=== PATIENT | male | born 1960 | race Hispanic/Latino ===

== ENCOUNTER 2023-03-09 12:53 | Inpatient (IN) | payer OTHER ==
[~2023-03-09] VITALS: Ht 149.9 cm; Wt 76.0 kg
[2023-03-09 13:59] LABS: BASO % 0.2 % (0.0-1.0); EOS % 0.3 % (0.0-3.0); HEMATOCRIT 37.2 % (42.0-52.0); HEMOGLOBIN 11.6 g/dl (13.5-17.5); LYMPH % 11.8 % (24.0-44.0); MEAN CORPUSCULAR HEMOGLOBIN 27.5 pg (27.0-33.0); MEAN CORPUSCULAR HGB CONC 31.2 g/dl (32.0-36.5); MEAN CORPUSCULAR VOLUME 88.2 fl (80.0-96.0); MONO # 0.5 10^3/uL (0.0-0.8); MONO % 5.9 % (2.0-8.0); NEUTROPHILS # 7.2 10^3/uL (1.5-8.5); NEUTROPHILS % 81.2 % (36.0-66.0); PLATELET COUNT, AUTOMATED 252 10^3/uL (150-450); RED BLOOD COUNT 4.22 10^6/uL (4.30-6.10); WHITE BLOOD COUNT 8.8 10^3/uL (4.0-10.0)
[2023-03-09 14:12] LABS: INR 0.91; PROTHROMBIN TIME 12.5 SECONDS (12.5-14.5)
[2023-03-09 14:13] LABS: PARTIAL THROMBOPLASTIN TIME 29.5 SECONDS (24.8-34.2)
[2023-03-09 14:22] LABS: CK-MB VALUE MASS < 1.0 NG/ML (<3.6); LIPASE 41 U/L (12-53)
[2023-03-09 14:25] LABS: CPK CREATINE PHOSPHOKINASE 65 U/L (46-171); MB/CK RELATIVE INDEX 1.53 (< OR =4)
[2023-03-09 14:45] LABS: ALKALINE PHOSPHATASE 155 U/L (46-116); ALT/SGPT 16 U/L (7.0-40); AST/SGOT < 8 U/L (<34); BILIRUBIN,DIRECT 0.1 MG/DL (<0.4); BILIRUBIN,TOTAL 0.3 MG/DL (0.3-1.2); BLOOD UREA NITROGEN 25 MG/DL (9-23); CALCIUM LEVEL 8.9 MG/DL (8.3-10.6); CARBON DIOXIDE LEVEL 21 MMOL/L (20-31); CHLORIDE LEVEL 89 MMOL/L (98-107); GLOMERULAR FILTRATION RATE 46.7 (>49); GLUCOSE, FASTING 874 MG/DL (74-106); POTASSIUM SERUM 5.2 MMOL/L (3.5-5.1); SODIUM LEVEL 123 MMOL/L (136-145); TOTAL PROTEIN 7.1 G/DL (5.7-8.2)
[2023-03-09] MEDS ORDERED: NS 1,000 ML IV ONE (15:25)
[2023-03-09] MEDS ORDERED: HumuLIN R (REGULAR) INSULIN (NovoLIN R) **100U/ML** PER UNIT IV ONE (15:30)
[2023-03-09] MEDS ORDERED: INSULIN REGULAR IN 0.9 % NACL 100 UNIT in IV 1 EA IV SCH ×2 (15:30)
[2023-03-09] MEDS ORDERED: INSULIN IV RATE CHANGE DOCUMENTATION ML/HR XX SCH (15:30)
[2023-03-09 15:32] LABS: CK-MB VALUE MASS < 1.0 NG/ML (<3.6)
[2023-03-09 15:35] LABS: CPK CREATINE PHOSPHOKINASE 75 U/L (46-171); MB/CK RELATIVE INDEX 1.33 (< OR =4)
[2023-03-09] MEDS ORDERED: ISOVUE-370 76% 100ML VIAL As Ordered ONE (15:36)
[2023-03-09 16:00] LABS: HEMOGLOBIN A1c > 14.0 % (4.0-6.0)
[2023-03-09] MEDS ORDERED: MED REC IN PROGRESS XX SCH (16:00)
[2023-03-09] MEDS ORDERED: LABETALOL 100MG/20ML VIAL IV STA (16:14)
[2023-03-09] MEDS ORDERED: HOME MED LIST COMPLETE! XX SCH (16:30)
[2023-03-09 16:42] LABS: LIPASE 37 U/L (12-53)
[2023-03-09 16:45] LABS: ALBUMIN 2.8 G/DL (3.2-5.2); ALKALINE PHOSPHATASE 149 U/L (46-116); ALT/SGPT 17 U/L (7.0-40); AST/SGOT 24 U/L (<34); BILIRUBIN,DIRECT < 0.1 MG/DL (<0.4); BILIRUBIN,TOTAL 0.3 MG/DL (0.3-1.2); TOTAL PROTEIN 6.8 G/DL (5.7-8.2)
[2023-03-09 17:26] LABS: RSV AMPLIFICATION NEGATIVE (NEGATIVE)
[2023-03-09] MEDS ORDERED: ACETAMINOPHEN TAB 650MG DOSE (2X325MG) PO ONE (18:35)
[2023-03-09 19:19] LABS: ACETONE/KETONE 1.51 MMOL/L (0.02-0.27)
[2023-03-09 19:21] LABS: OSMOLALITY SERUM 314 MOSM/KG (280-301)
[2023-03-09] MEDS ORDERED: HumuLIN R (REGULAR) INSULIN (NovoLIN R) **100U/ML** PER UNIT IV STA (19:42)
[2023-03-09 19:57] LABS: CALCIUM LEVEL 8.5 MG/DL (8.3-10.6); CREATININE FOR GFR 1.41 MG/DL (0.70-1.30); POTASSIUM SERUM 5.5 MMOL/L (3.5-5.1)
[2023-03-09] MEDS ORDERED: GLUCOSE 4GM CHEW TABLET PO PRN (21:10)
[2023-03-09] MEDS ORDERED: DEXTROSE 50% 50ML SYRINGE IV PRN (21:10)
[2023-03-09] MEDS ORDERED: GLUCAGON INJ 1MG VIAL SC PRN (21:10)
[2023-03-09] MEDS ORDERED: amLODIPine 5 MG TAB PO ONE (21:10)
[2023-03-09] MEDS ORDERED: LEVEMIR (INSULIN DETEMIR) 1 UNITS/0.01ML SC SCH (21:10)
[2023-03-09] MEDS ORDERED: NS 500 ML IV ONE (21:10)
[2023-03-09 22:30] VITALS: BP 169/75; TEMP 97.8; O2SAT 93
[2023-03-09] MEDS: LIDOCAINE 5% (LIDODERM) PATCH TD SCH (23:00)
[2023-03-09] MEDS: DOXYCYCLINE HYCLATE 100MG TABLET PO SCH (23:00)
[2023-03-09] MEDS: cefTRIAXone SOD 1 GM in D5W MINI-BAG PLUS 50 ML IV SCH (23:01)
[2023-03-09] MEDS: NS 1,000 ML IV SCH (23:02)
[2023-03-10] VITALS (15 sets, daily range): BP systolic 140–165; BP diastolic 71–78; TEMP 98.3–99.2; O2SAT 90–99
[2023-03-10] MEDS ORDERED: amLODIPine 5 MG TAB PO ONE (01:50)
[2023-03-10] MEDS ORDERED: HEPARIN SOD (PORCINE) 5000UNITS/ML 1ML VIAL/SYRINGE SC SCH (06:00)
[2023-03-10 06:07] LABS: LDH LACTATE DEHYDROGENASE 154 U/L (120-246)
[2023-03-10 06:11] LABS: BLOOD UREA NITROGEN 16 MG/DL (9-23); CALCIUM LEVEL 8.4 MG/DL (8.3-10.6); CARBON DIOXIDE LEVEL 21 MMOL/L (20-31); CHLORIDE LEVEL 102 MMOL/L (98-107); CREATININE FOR GFR 1.26 MG/DL (0.70-1.30); GLOMERULAR FILTRATION RATE > 60.0 (>49); GLUCOSE, FASTING 284 MG/DL (74-106); SODIUM LEVEL 135 MMOL/L (136-145)
[2023-03-10] MEDS ORDERED: amLODIPine 5 MG TAB PO SCH (09:00)
[2023-03-10] MEDS: INSULIN LISPRO (NovoLOG) PER UNIT SC SCH ×3 (10:04→17:30)
[2023-03-10] MEDS: DOXYCYCLINE HYCLATE 100MG TABLET PO SCH ×2 (10:04→22:29)
[2023-03-10] MEDS: NS 1,000 ML IV SCH (10:05)
[2023-03-10] MEDS ORDERED: LEVEMIR (INSULIN DETEMIR) 1 UNITS/0.01ML SC ONE (16:30)
[2023-03-10] MEDS ORDERED: INSULIN LISPRO (NovoLOG) PER UNIT SC SCH ×4 (17:30→21:00)
[2023-03-10] MEDS ORDERED: LEVEMIR (INSULIN DETEMIR) 1 UNITS/0.01ML SC SCH (21:00)
[2023-03-10] MEDS: cefTRIAXone SOD 1 GM in D5W MINI-BAG PLUS 50 ML IV SCH (22:27)
[2023-03-10] MEDS: LIDOCAINE 5% (LIDODERM) PATCH TD SCH (22:28)
[2023-03-11] VITALS (23 sets, daily range): BP systolic 125–186; BP diastolic 50–79; TEMP 98.1–101.3; O2SAT 90–97
[2023-03-11] MEDS: DOXYCYCLINE HYCLATE 100MG TABLET PO SCH ×2 (08:29→20:23)
[2023-03-11] MEDS: ENOXAPARIN 40MG/0.4ML SYRINGE (J1650 PER 10MG) SC SCH (08:29)
[2023-03-11] MEDS: INSULIN LISPRO (NovoLOG) PER UNIT SC SCH ×7 (08:32→20:02)
[2023-03-11] MEDS: LEVEMIR (INSULIN DETEMIR) 1 UNITS/0.01ML SC SCH ×2 (08:33→20:24)
[2023-03-11] MEDS ORDERED: LOSARTAN 25 MG TAB PO SCH (09:00)
[2023-03-11 12:41] LABS: BASO % 0.2 % (0.0-1.0); EOS % 0.3 % (0.0-3.0); HEMATOCRIT 37.6 % (42.0-52.0); HEMOGLOBIN 11.9 g/dl (13.5-17.5); LYMPH # 1.9 10^3/uL (1.5-5.0); LYMPH % 15.9 % (24.0-44.0); MEAN CORPUSCULAR HEMOGLOBIN 27.4 pg (27.0-33.0); MEAN CORPUSCULAR HGB CONC 31.6 g/dl (32.0-36.5); MEAN CORPUSCULAR VOLUME 86.6 fl (80.0-96.0); MONO # 0.7 10^3/uL (0.0-0.8); MONO % 5.8 % (2.0-8.0); NEUTROPHILS % 77.3 % (36.0-66.0); PLATELET COUNT, AUTOMATED 268 10^3/uL (150-450); RED BLOOD COUNT 4.34 10^6/uL (4.30-6.10); WHITE BLOOD COUNT 11.7 10^3/uL (4.0-10.0)
[2023-03-11] MEDS: METOPROLOL TART 12.5 MG PER 1/2 TAB PO SCH ×2 (13:20→20:23)
[2023-03-11] MEDS: ACETAMINOPHEN TAB 650MG DOSE (2X325MG) PO PRN (20:23)
[2023-03-11] MEDS: LIDOCAINE 5% (LIDODERM) PATCH TD SCH (20:24)
[2023-03-11] MEDS: cefTRIAXone SOD 1 GM in D5W MINI-BAG PLUS 50 ML IV SCH (21:32)
[2023-03-12] VITALS (15 sets, daily range): BP systolic 126–148; BP diastolic 58–71; TEMP 99.3–101; O2SAT 90–96
[2023-03-12 05:17] LABS: BASO % 0.3 % (0.0-1.0); EOS # 0.2 10^3/uL (0.0-0.5); EOS % 1.3 % (0.0-3.0); HEMATOCRIT 36.7 % (42.0-52.0); HEMOGLOBIN 11.5 g/dl (13.5-17.5); LYMPH % 17.6 % (24.0-44.0); MEAN CORPUSCULAR HEMOGLOBIN 27.3 pg (27.0-33.0); MEAN CORPUSCULAR HGB CONC 31.3 g/dl (32.0-36.5); MEAN CORPUSCULAR VOLUME 87.2 fl (80.0-96.0); MONO # 0.7 10^3/uL (0.0-0.8); MONO % 5.9 % (2.0-8.0); NEUTROPHILS # 8.5 10^3/uL (1.5-8.5); NEUTROPHILS % 74.1 % (36.0-66.0); PLATELET COUNT, AUTOMATED 282 10^3/uL (150-450); RED BLOOD COUNT 4.21 10^6/uL (4.30-6.10); WHITE BLOOD COUNT 11.5 10^3/uL (4.0-10.0)
[2023-03-12 05:33] LABS: CALCIUM LEVEL 8.8 MG/DL (8.3-10.6); CREATININE FOR GFR 1.55 MG/DL (0.70-1.30); GLOMERULAR FILTRATION RATE 48.5 (>49); POTASSIUM SERUM 4.4 MMOL/L (3.5-5.1)
[2023-03-12 05:42] LABS: C REACTIVE PROTEIN QUANTITATIV 31.1 MG/DL (<1.0)
[2023-03-12] MEDS: INSULIN LISPRO (NovoLOG) PER UNIT SC SCH ×5 (08:19→20:09)
[2023-03-12] MEDS: LEVEMIR (INSULIN DETEMIR) 1 UNITS/0.01ML SC SCH ×2 (08:19→20:24)
[2023-03-12] MEDS: METOPROLOL TART 12.5 MG PER 1/2 TAB PO SCH ×2 (08:20→20:25)
[2023-03-12] MEDS: ENOXAPARIN 40MG/0.4ML SYRINGE (J1650 PER 10MG) SC SCH (08:20)
[2023-03-12] MEDS: DOXYCYCLINE HYCLATE 100MG TABLET PO SCH (08:20)
[2023-03-12] MEDS ORDERED: LEVEMIR (INSULIN DETEMIR) 1 UNITS/0.01ML SC ONE (09:45)
[2023-03-12] MEDS ORDERED: INSULIN LISPRO (NovoLOG) PER UNIT SC SCH (12:00)
[2023-03-12] MEDS ORDERED: ACETAMINOPHEN 325 MG TAB As Ordered ONE (15:50)
[2023-03-12] MEDS ORDERED: LIDOCAINE 1% MDV 20ML VIAL As Ordered ONE (15:53)
[2023-03-12] MEDS: ACETAMINOPHEN TAB 650MG DOSE (2X325MG) PO PRN ×2 (15:55→23:32)
[2023-03-12] MEDS: HYDROmorphone 2 MG TAB PO PRN ×2 (17:15→23:35)
[2023-03-12] MEDS: metroNIDAZOLE 500 MG in IV 1 EA IV SCH (17:33)
[2023-03-12] MEDS: LIDOCAINE 5% (LIDODERM) PATCH TD SCH (20:32)
[2023-03-12] MEDS: cefTRIAXone SOD 1 GM in D5W MINI-BAG PLUS 50 ML IV SCH (21:12)
[2023-03-13] VITALS (24 sets, daily range): BP systolic 125–142; BP diastolic 58–76; TEMP 98.3–100.2; O2SAT 87–98
[2023-03-13] MEDS: metroNIDAZOLE 500 MG in IV 1 EA IV SCH ×3 (02:40→17:50)
[2023-03-13 05:34] LABS: BASO % 0.3 % (0.0-1.0); EOS # 0.2 10^3/uL (0.0-0.5); EOS % 2.4 % (0.0-3.0); HEMOGLOBIN 10.4 g/dl (13.5-17.5); LYMPH # 1.9 10^3/uL (1.5-5.0); LYMPH % 18.8 % (24.0-44.0); MEAN CORPUSCULAR HGB CONC 30.6 g/dl (32.0-36.5); MEAN CORPUSCULAR VOLUME 88.3 fl (80.0-96.0); MONO # 0.8 10^3/uL (0.0-0.8); MONO % 7.8 % (2.0-8.0); NEUTROPHILS # 6.9 10^3/uL (1.5-8.5); NEUTROPHILS % 69.8 % (36.0-66.0); PLATELET COUNT, AUTOMATED 270 10^3/uL (150-450); RED BLOOD COUNT 3.85 10^6/uL (4.30-6.10); WHITE BLOOD COUNT 9.9 10^3/uL (4.0-10.0)
[2023-03-13 05:42] LABS: CALCIUM LEVEL 8.4 MG/DL (8.3-10.6); CREATININE FOR GFR 1.43 MG/DL (0.70-1.30); GLOMERULAR FILTRATION RATE 53.2 (>49); POTASSIUM SERUM 4.1 MMOL/L (3.5-5.1)
[2023-03-13] MEDS: LEVEMIR (INSULIN DETEMIR) 1 UNITS/0.01ML SC SCH ×2 (08:58→21:10)
[2023-03-13] MEDS: INSULIN LISPRO (NovoLOG) PER UNIT SC SCH ×7 (08:59→21:00)
[2023-03-13] MEDS: METOPROLOL TART 12.5 MG PER 1/2 TAB PO SCH ×2 (09:01→21:11)
[2023-03-13] MEDS: ENOXAPARIN 40MG/0.4ML SYRINGE (J1650 PER 10MG) SC SCH (09:02)
[2023-03-13] MEDS ORDERED: ALTEPLASE 2MG/2ML VIAL XX ONE (11:00)
[2023-03-13] MEDS: HYDROmorphone 2 MG TAB PO PRN (12:30)
[2023-03-13] MEDS ORDERED: HYDROMORPHONE HCL 0.5 MG/ 0.5 ML SYRINGE IV ONE (13:05)
[2023-03-13] MEDS: ACETAMINOPHEN TAB 650MG DOSE (2X325MG) PO PRN (15:50)
[2023-03-13] MEDS: LIDOCAINE 5% (LIDODERM) PATCH TD SCH (21:10)
[2023-03-13] MEDS: cefTRIAXone SOD 1 GM in D5W MINI-BAG PLUS 50 ML IV SCH (21:10)
[2023-03-13] MEDS ORDERED: CALCIUM CARBONATE 500 MG CHEW U/D PO ONE (22:05)
[2023-03-14] VITALS (23 sets, daily range): BP systolic 118–149; BP diastolic 56–67; TEMP 98.1–98.6; O2SAT 90–96
[2023-03-14] MEDS: metroNIDAZOLE 500 MG in IV 1 EA IV SCH ×3 (03:20→17:47)
[2023-03-14 04:50] LABS: BASO % 0.2 % (0.0-1.0); EOS # 0.1 10^3/uL (0.0-0.5); EOS % 0.9 % (0.0-3.0); HEMATOCRIT 32.4 % (42.0-52.0); HEMOGLOBIN 10.3 g/dl (13.5-17.5); LYMPH # 1.3 10^3/uL (1.5-5.0); LYMPH % 15.2 % (24.0-44.0); MEAN CORPUSCULAR HEMOGLOBIN 27.3 pg (27.0-33.0); MEAN CORPUSCULAR HGB CONC 31.8 g/dl (32.0-36.5); MEAN CORPUSCULAR VOLUME 85.9 fl (80.0-96.0); MONO # 0.6 10^3/uL (0.0-0.8); MONO % 6.8 % (2.0-8.0); NEUTROPHILS # 6.7 10^3/uL (1.5-8.5); NEUTROPHILS % 76.2 % (36.0-66.0); PLATELET COUNT, AUTOMATED 272 10^3/uL (150-450); RED BLOOD COUNT 3.77 10^6/uL (4.30-6.10); WHITE BLOOD COUNT 8.8 10^3/uL (4.0-10.0)
[2023-03-14 05:04] LABS: CALCIUM LEVEL 8.5 MG/DL (8.3-10.6); CREATININE FOR GFR 1.5 MG/DL (0.70-1.30); GLOMERULAR FILTRATION RATE 50.3 (>49); POTASSIUM SERUM 4.4 MMOL/L (3.5-5.1)
[2023-03-14 05:12] LABS: C REACTIVE PROTEIN QUANTITATIV 23.6 MG/DL (<1.0)
[2023-03-14] MEDS: METOPROLOL TART 12.5 MG PER 1/2 TAB PO SCH ×2 (08:49→21:35)
[2023-03-14] MEDS: INSULIN LISPRO (NovoLOG) PER UNIT SC SCH ×7 (08:49→21:00)
[2023-03-14] MEDS: ENOXAPARIN 40MG/0.4ML SYRINGE (J1650 PER 10MG) SC SCH (08:50)
[2023-03-14] MEDS: LEVEMIR (INSULIN DETEMIR) 1 UNITS/0.01ML SC SCH ×2 (08:50→21:36)
[2023-03-14] MEDS: FUROSEMIDE 40MG/4ML VIAL IV SCH (11:46)
[2023-03-14 12:10] LABS: ANTI DS-DNA AB Negative (Negative); CYCLIC CITRULLINATED PEPTIDE 4 units (0-19)
[2023-03-14 17:07] LABS: C-PEPTIDE 1.2 ng/mL (1.1-4.4); INSULIN LEVEL 2.2 uIU/mL (2.6-24.9)
[2023-03-14] MEDS: cefTRIAXone SOD 1 GM in D5W MINI-BAG PLUS 50 ML IV SCH (21:36)
[2023-03-14] MEDS: LIDOCAINE 5% (LIDODERM) PATCH TD SCH (21:36)
[2023-03-15] VITALS (18 sets, daily range): BP systolic 114–152; BP diastolic 55–87; TEMP 98–98.6; O2SAT 90–95
[2023-03-15] MEDS: metroNIDAZOLE 500 MG in IV 1 EA IV SCH ×3 (02:00→18:05)
[2023-03-15 05:24] LABS: BASO % 0.3 % (0.0-1.0); EOS # 0.1 10^3/uL (0.0-0.5); EOS % 1.1 % (0.0-3.0); HEMATOCRIT 33.6 % (42.0-52.0); HEMOGLOBIN 10.6 g/dl (13.5-17.5); LYMPH # 2.9 10^3/uL (1.5-5.0); LYMPH % 27.1 % (24.0-44.0); MEAN CORPUSCULAR HEMOGLOBIN 27.3 pg (27.0-33.0); MEAN CORPUSCULAR HGB CONC 31.5 g/dl (32.0-36.5); MEAN CORPUSCULAR VOLUME 86.6 fl (80.0-96.0); MONO # 0.7 10^3/uL (0.0-0.8); MONO % 6.8 % (2.0-8.0); NEUTROPHILS # 6.9 10^3/uL (1.5-8.5); NEUTROPHILS % 64.1 % (36.0-66.0); PLATELET COUNT, AUTOMATED 367 10^3/uL (150-450); RED BLOOD COUNT 3.88 10^6/uL (4.30-6.10); WHITE BLOOD COUNT 10.8 10^3/uL (4.0-10.0)
[2023-03-15 05:46] LABS: C REACTIVE PROTEIN QUANTITATIV 22.9 MG/DL (<1.0); CALCIUM LEVEL 8.3 MG/DL (8.3-10.6); CREATININE FOR GFR 1.55 MG/DL (0.70-1.30); GLOMERULAR FILTRATION RATE 48.5 (>49)
[2023-03-15] MEDS: INSULIN LISPRO (NovoLOG) PER UNIT SC SCH ×7 (07:30→20:00)
[2023-03-15] MEDS: FUROSEMIDE 40MG/4ML VIAL IV SCH (08:26)
[2023-03-15] MEDS: ENOXAPARIN 40MG/0.4ML SYRINGE (J1650 PER 10MG) SC SCH (08:26)
[2023-03-15] MEDS: LEVEMIR (INSULIN DETEMIR) 1 UNITS/0.01ML SC SCH ×2 (08:26→20:06)
[2023-03-15] MEDS: METOPROLOL TART 12.5 MG PER 1/2 TAB PO SCH ×2 (08:27→20:07)
[2023-03-15] MEDS: LIDOCAINE 5% (LIDODERM) PATCH TD SCH (20:06)
[2023-03-15] MEDS: cefTRIAXone SOD 1 GM in D5W MINI-BAG PLUS 50 ML IV SCH (21:34)
[2023-03-16] VITALS (26 sets, daily range): BP systolic 129–156; BP diastolic 63–106; TEMP 98–99.1; O2SAT 91–96
[2023-03-16] MEDS: metroNIDAZOLE 500 MG in IV 1 EA IV SCH ×2 (02:05→08:39)
[2023-03-16 05:20] LABS: HEMATOCRIT 37.3 % (42.0-52.0); HEMOGLOBIN 11.5 g/dl (13.5-17.5); MEAN CORPUSCULAR HEMOGLOBIN 26.6 pg (27.0-33.0); MEAN CORPUSCULAR HGB CONC 30.8 g/dl (32.0-36.5); MEAN CORPUSCULAR VOLUME 86.3 fl (80.0-96.0); PLATELET COUNT, AUTOMATED 401 10^3/uL (150-450); RED BLOOD COUNT 4.32 10^6/uL (4.30-6.10); WHITE BLOOD COUNT 10.2 10^3/uL (4.0-10.0)
[2023-03-16 05:44] LABS: CALCIUM LEVEL 8.4 MG/DL (8.3-10.6); CREATININE FOR GFR 1.43 MG/DL (0.70-1.30); GLOMERULAR FILTRATION RATE 53.2 (>49); POTASSIUM SERUM 4.1 MMOL/L (3.5-5.1)
[2023-03-16 07:11] LABS: C REACTIVE PROTEIN QUANTITATIV 14.9 MG/DL (<1.0)
[2023-03-16] MEDS: FUROSEMIDE 40MG/4ML VIAL IV SCH (08:39)
[2023-03-16] MEDS: ENOXAPARIN 40MG/0.4ML SYRINGE (J1650 PER 10MG) SC SCH (08:39)
[2023-03-16] MEDS: LEVEMIR (INSULIN DETEMIR) 1 UNITS/0.01ML SC SCH ×2 (08:39→21:41)
[2023-03-16] MEDS ORDERED: ALTEPLASE 2MG/2ML VIAL XX ONE (08:40)
[2023-03-16] MEDS: INSULIN LISPRO (NovoLOG) PER UNIT SC SCH ×7 (08:40→21:00)
[2023-03-16] MEDS: METOPROLOL TART 12.5 MG PER 1/2 TAB PO SCH ×2 (08:41→21:15)
[2023-03-16] MEDS: metroNIDAZOLE (FLAGYL) 500MG TABLET PO SCH ×2 (15:58→21:15)
[2023-03-16] MEDS: cefTRIAXone SOD 1 GM in D5W MINI-BAG PLUS 50 ML IV SCH (21:14)
[2023-03-16] MEDS: LIDOCAINE 5% (LIDODERM) PATCH TD SCH (21:23)
[2023-03-17] VITALS (8 sets, daily range): BP systolic 157; BP diastolic 69; TEMP 98.1; O2SAT 92–95
[2023-03-17 05:15] LABS: BASO # 0.1 10^3/uL (0.0-0.2); BASO % 0.5 % (0.0-1.0); EOS # 0.1 10^3/uL (0.0-0.5); EOS % 0.5 % (0.0-3.0); HEMATOCRIT 37.2 % (42.0-52.0); HEMOGLOBIN 11.5 g/dl (13.5-17.5); LYMPH # 2.9 10^3/uL (1.5-5.0); LYMPH % 27.1 % (24.0-44.0); MEAN CORPUSCULAR HEMOGLOBIN 26.9 pg (27.0-33.0); MEAN CORPUSCULAR HGB CONC 30.9 g/dl (32.0-36.5); MEAN CORPUSCULAR VOLUME 86.9 fl (80.0-96.0); MONO # 0.7 10^3/uL (0.0-0.8); MONO % 6.7 % (2.0-8.0); NEUTROPHILS # 6.9 10^3/uL (1.5-8.5); NEUTROPHILS % 64.1 % (36.0-66.0); PLATELET COUNT, AUTOMATED 460 10^3/uL (150-450); RED BLOOD COUNT 4.28 10^6/uL (4.30-6.10); WHITE BLOOD COUNT 10.7 10^3/uL (4.0-10.0)
[2023-03-17] MEDS: metroNIDAZOLE (FLAGYL) 500MG TABLET PO SCH ×2 (05:33→13:41)
[2023-03-17 05:36] LABS: C REACTIVE PROTEIN QUANTITATIV 11.3 MG/DL (<1.0)
[2023-03-17 05:37] LABS: CALCIUM LEVEL 8.5 MG/DL (8.3-10.6); CREATININE FOR GFR 1.5 MG/DL (0.70-1.30); GLOMERULAR FILTRATION RATE 50.3 (>49); MAGNESIUM LEVEL 1.9 MG/DL (1.8-2.4); POTASSIUM SERUM 4.7 MMOL/L (3.5-5.1)
[2023-03-17] MEDS: FUROSEMIDE 40MG/4ML VIAL IV SCH (08:56)
[2023-03-17] MEDS: LEVEMIR (INSULIN DETEMIR) 1 UNITS/0.01ML SC SCH (08:57)
[2023-03-17] MEDS: INSULIN LISPRO (NovoLOG) PER UNIT SC SCH ×4 (08:57→13:41)
[2023-03-17] MEDS: METOPROLOL TART 12.5 MG PER 1/2 TAB PO SCH (08:58)
[2023-03-17] MEDS: ENOXAPARIN 40MG/0.4ML SYRINGE (J1650 PER 10MG) SC SCH (08:58)
[2023-03-17] MEDS ORDERED: AMLO1TAB25 PO ×2 (11:22→15:06)
[2023-03-17] MEDS ORDERED: METR-265 PO ×2 (11:22→15:06)
[2023-03-17] MEDS ORDERED: LANC1COM6 MC ×2 (11:22→14:25)
[2023-03-17] MEDS ORDERED: METO1TAB87 PO ×2 (11:22→15:06)
[2023-03-17] MEDS ORDERED: BLOO-76 MC ×2 (11:22→14:25)
[2023-03-17] MEDS ORDERED: LASI40TA9 PO ×2 (11:22→15:06)
[2023-03-17] MEDS ORDERED: LANTINJ4 SC ×2 (11:22→15:06)
[2023-03-17] MEDS ORDERED: FARX1TAB3 PO ×2 (11:22→15:06)
[2023-03-17] MEDS ORDERED: CEFD300C41 PO ×2 (11:22→15:06)
[2023-03-17] MEDS ORDERED: PEN1MIS21 SC ×2 (12:07→14:25)
[2023-03-17] MEDS ORDERED: LANC30MI XX (15:43)
[2023-03-17] MEDS ORDERED: ALCOPAD25 TOP (15:43)
[2023-03-17] MEDS ORDERED: GLUC1TES2 XX (15:43)
== END 2023-03-17 17:00 | disposition home health service (06) | DRG 137 ==
LOC: M ED 12:53 → M ED INP 12:54 → M PCU 22:26
PROVIDERS: ADMIT Internal Medicine; ATTEND Internal Medicine
PROC: 0W9B30Z Drainage of Left Pleural Cavity with Drainage Device, Percutaneous Approach (ICD-10-PCS; principal; 2023-03-12 14:00)
PROC: 3E0L3GC Introduction of Other Therapeutic Substance into Pleural Cavity, Percutaneous Approach (ICD-10-PCS; 2023-03-13)
DX: J85.1 Abscess of lung with pneumonia (principal); N17.9 Acute kidney failure, unspecified; J90 Pleural effusion, not elsewhere classified; E11.65 Type 2 diabetes mellitus with hyperglycemia; I70.1 Atherosclerosis of renal artery; E87.1 Hypo-osmolality and hyponatremia; E66.9 Obesity, unspecified; F17.210 Nicotine dependence, cigarettes, uncomplicated; I10 Essential (primary) hypertension; I16.0 Hypertensive urgency; I77.1 Stricture of artery; J98.11 Atelectasis; M25.512 Pain in left shoulder; R07.81 Pleurodynia; R07.89 Other chest pain; Z68.33 Body mass index [BMI] 33.0-33.9, adult; R91.8 Other nonspecific abnormal finding of lung field; Z20.822 Contact with and (suspected) exposure to COVID-19; Z85.71 Personal history of Hodgkin lymphoma; Z92.21 Personal history of antineoplastic chemotherapy; Z79.899 Other long term (current) drug therapy; J85.0 Gangrene and necrosis of lung

== ENCOUNTER → 2023-05-14 | Outpatient (CLI) | payer OTHER ==
[~2023-05-14] MED LIST: ALCOPAD25 TOP; AMLO1TAB25 PO; BLOO-76 MC; CEFD300C41 PO; FARX1TAB3 PO; GLUC1TES2 XX; LANC1COM6 MC; LANC30MI XX; LANTINJ4 SC; LASI40TA9 PO; METO1TAB87 PO; METR-265 PO; PEN1MIS21 SC
== END ==
LOC: M PLAIMG 08:42
PROVIDERS: ATTEND Internal Medicine Pulmonary Disease
DX: R91.8 Other nonspecific abnormal finding of lung field (principal)

== ENCOUNTER → 2023-05-31 | Outpatient (CLI) | payer OTHER ==
[~2023-05-31] MED LIST changes: -CEFD300C41 PO; +CEFD300C42 PO; +PEN-308 SC; -PEN1MIS21 SC
== END ==
LOC: M RAD 10:01
PROVIDERS: ATTEND Urology
DX: Z96.0 Presence of urogenital implants (principal); N26.1 Atrophy of kidney (terminal)

== ENCOUNTER → 2023-08-15 | Outpatient (CLI) | payer OTHER ==
[~2023-08-15] MED LIST changes: +CEFD1CAP9 PO; -CEFD300C42 PO
== END ==
LOC: M WHC 13:04
PROVIDERS: ATTEND Specialist
DX: N62 Hypertrophy of breast (principal)

== ENCOUNTER → 2023-10-17 | Outpatient (CLI) | payer OTHER | LOC: M RAD 11:23 | PROVIDERS: ATTEND Urology | DX: Z12.5 Encounter for screening for malignant neoplasm of prostate (principal); Z96.0 Presence of urogenital implants ==

== ENCOUNTER 2024-04-10 08:26 | Emergency (ER) | payer OTHER ==
[~2024-04-10] VITALS: Ht 165.1 cm; Wt 71.1 kg
[2024-04-10 10:51] VITALS: BP 160/90
[2024-04-10] MEDS: amLODIPine 5 MG TAB PO ONE (10:51)
[2024-04-10 11:04] LABS: BASO % 0.5 % (0.0-1.0); EOS # 0.1 10^3/uL (0.0-0.5); EOS % 0.9 % (0.0-3.0); HEMATOCRIT 44.9 % (42.0-52.0); HEMOGLOBIN 14.1 g/dl (13.5-17.5); LYMPH # 0.9 10^3/uL (1.5-5.0); LYMPH % 15.7 % (24.0-44.0); MEAN CORPUSCULAR HEMOGLOBIN 27.6 pg (27.0-33.0); MEAN CORPUSCULAR HGB CONC 31.4 g/dl (32.0-36.5); MEAN CORPUSCULAR VOLUME 87.9 fl (80.0-96.0); MONO # 0.4 10^3/uL (0.0-0.8); NEUTROPHILS # 4.4 10^3/uL (1.5-8.5); NEUTROPHILS % 75.4 % (36.0-66.0); PLATELET COUNT, AUTOMATED 204 10^3/uL (150-450); RED BLOOD COUNT 5.11 10^6/uL (4.30-6.10); WHITE BLOOD COUNT 5.9 10^3/uL (4.0-10.0)
[2024-04-10 11:29] LABS: ALBUMIN 3.9 G/DL (3.2-5.2); BILIRUBIN,TOTAL 0.3 MG/DL (0.3-1.2); CALCIUM LEVEL 9.5 MG/DL (8.3-10.6); CREATININE FOR GFR 1.53 MG/DL (0.70-1.30); TOTAL PROTEIN 7.7 G/DL (5.7-8.2)
[2024-04-10 11:31] LABS: HEMOGLOBIN A1c 8.2 % (4.0-6.0)
[2024-04-10] MEDS ORDERED: AMLO1TAB24 PO (13:06)
[2024-04-10] MEDS ORDERED: VALA1TAB5 PO (13:06)
[2024-04-10] MEDS ORDERED: METF500T13 PO (13:15)
[2024-04-10 13:20] VITALS: BP 140/80; TEMP 97.1; O2SAT 98
== END 2024-04-10 13:24 | disposition home or self-care (01) ==
LOC: M ED 08:26
DX: I10 Essential (primary) hypertension (principal); B02.9 Zoster without complications; E11.9 Type 2 diabetes mellitus without complications; F17.200 Nicotine dependence, unspecified, uncomplicated